=== PATIENT | female | born 1985 | race Caucasian/White ===

== ENCOUNTER 2021-03-10 11:40 | Day surgery (SDC) | payer OTHER ==
[2021-03-10 12:27] VITALS: BMI 31.0
[2021-03-10] MEDS ORDERED: hydrALAZINE 20 MG/ML VIAL SLOW IVP PRN (12:28)
[2021-03-10 12:44] LABS: Bilirubin Neg (Negative); Blood, Urine 10 (Negative); Clarity Clear (Clear); Glucose, Urine (Dipstick) Normal (Negative); Ketone, Urine Negative (Negative); Leukocyte Negative (Negative); Nitrite Negative (Negative); Protein, Urine (Dipstick) 15 mg/dl (Neg-Trace); Urobilinogen Normal mg/dL (Less than 2); pH, Urine 6.5 (5.0-9.0)
[2021-03-10 12:46] LABS: Urine Culture Reflex No No
[2021-03-10 12:58] LABS: Bacteria/HPF None Seen HPF (None Seen); RBC/HPF 0-3 HPF (0-3); Squamous Epithelial 0-3 HPF (0-3); WBC/HPF None Seen HPF (0-3)
== END 2021-03-10 13:08 | disposition home health service (06) ==
LOC: CSHLD/OP 11:40
PROVIDERS: ATTEND Obstetrics & Gynecology
DX: O99.891 Other specified diseases and conditions complicating pregnancy (principal); R31.9 Hematuria, unspecified; Z3A.39 39 weeks gestation of pregnancy; Z91.013 Allergy to seafood
CPT/HCPCS: 81001; 99283

== ENCOUNTER 2021-03-18 04:55 | Inpatient (IN) | payer OTHER ==
[2021-03-18] MEDS ORDERED: HYDROcodone/Acetaminophen 5/325 mg Tablet PO PRN ×3 (06:00→17:05)
[2021-03-18] MEDS ORDERED: Diphenoxylate HCl/Atropine Tablet PO PRN ×2 (06:00)
[2021-03-18] MEDS ORDERED: Methylergonovine 0.2 MG/ML VIAL IM PRN (06:00)
[2021-03-18] MEDS ORDERED: NS w/ Oxytocin 30 units 500 ML IVPB SCH ×2 (06:00→17:05)
[2021-03-18] MEDS ORDERED: Promethazine HCl 25 MG/ML VIAL IM PRN ×4 (06:00→17:05)
[2021-03-18] MEDS ORDERED: Ibuprofen 800 MG TAB PO PRN (06:00)
[2021-03-18] MEDS ORDERED: Ondansetron PF 4 MG/2 ML Vial IVP PRN ×4 (06:00→17:05)
[2021-03-18] MEDS ORDERED: Misoprostol 200 MCG TAB RC PRN (06:00)
[2021-03-18] MEDS ORDERED: NS w/ Oxytocin 30 units 500 ML IV SCH ×2 (06:00)
[2021-03-18] MEDS ORDERED: Butorphanol Tartrate 1 MG/ML VIAL SLOW IVP PRN (06:00)
[2021-03-18] MEDS ORDERED: Carboprost 250 MCG/ML AMP IM PRN (06:00)
[2021-03-18] MEDS ORDERED: Lidocaine 1% (PF) 30 ML VIAL SC PRN (06:00)
[2021-03-18] MEDS ORDERED: hydrALAZINE 20 MG/ML VIAL SLOW IVP PRN ×3 (06:00→17:05)
[2021-03-18 06:03] LABS: Hemoglobin 11.3 g/dL (12.0-15.5); Mean Corpuscular HGB CONC 33.7 g/dL (32.0-36.0); Mean Corpuscular Hemoglobin 32.4 pg (27.0-33.0); Mean Platelet Volume 10.6 fl (7.4-10.4); Platelet Count 321 10x3/uL (150-450); RBC Distribution Width 12.7 % (11.5-14.5); Red Blood Cell (RBC) Count 3.49 10x6/uL (3.90-5.03); White Blood Cell (WBC) Count 14.3 10x3/uL (3.5-10.5)
[2021-03-18] MEDS: Lactated Ringer's 1,000 ML IV SCH ×3 (06:10→14:27)
[2021-03-18 06:40] LABS: Hep B Surf Ag Non-Reactive S/CO (NonReactive)
[2021-03-18] MEDS ORDERED: Fentanyl 4 mcg/Bup 0.1% Cadd 100 ML ONE ×2 (06:50→14:20)
[2021-03-18 06:52] LABS: HBSAg Index 0.17 S/CO (0-0.99)
[2021-03-18] MEDS: Fentanyl 4 mcg/Bupivacaine 0.1% Cassette 100 ML EPIDURAL SCH ×2 (07:20→14:22)
[2021-03-18 09:18] VITALS: BMI 31.7
[2021-03-18 09:19] LABS: Syphilis Antibody Nonreactive (Nonreactive); Syphilis Antibody Index 0.03 S/CO (<1.00 Non-Reactive)
[2021-03-18] MEDS ORDERED: ePHEDrine 50 MG/ML VIAL SLOW IVP PRN ×2 (10:21→11:26)
[2021-03-18] MEDS ORDERED: diphenhydrAMINE 50 MG/ML VIAL IVP PRN ×2 (10:21→11:26)
[2021-03-18] MEDS ORDERED: Lactated Ringer's 500 ML IV PRN ×2 (10:21→11:26)
[2021-03-18] MEDS ORDERED: Acetaminophen 325 MG TAB PO PRN ×2 (10:21→11:26)
[2021-03-18] MEDS ORDERED: Naloxone HCl 0.4 mg/ml Vial IVP PRN ×4 (10:21→11:26)
[2021-03-18] MEDS ORDERED: Eucerin (Mineral Oil/Petrolatum,White) 30 gm Jar TOP PRN ×2 (10:21→11:26)
[2021-03-18] MEDS ORDERED: Communication Order-Pharmacy FS SCH ×2 (10:30→11:30)
[2021-03-18] MEDS ORDERED: Bisacodyl 10 MG SUPP PR PRN ×2 (17:05)
[2021-03-18] MEDS ORDERED: NS / Oxytocin 40 units/1000ml 1,000 ML IV SCH ×2 (17:05)
[2021-03-18] MEDS ORDERED: Benzocaine-Menthol 82.5 ML CAN TOP PRN (17:05)
[2021-03-18] MEDS ORDERED: Milk Of Magnesia 30 ML UDCUP PO PRN ×2 (17:05)
[2021-03-18] MEDS ORDERED: Adacel (T-DAP) 0.5 ML SYRINGE IM ONE (17:05)
[2021-03-18] MEDS ORDERED: Lanolin Ointment 7 GM TUBE TOP PRN (17:05)
[2021-03-18] MEDS ORDERED: Misoprostol 100 MCG TAB PO PRN (17:05)
[2021-03-18] MEDS ORDERED: Ferrous Sulfate 325 MG TAB PO SCH (17:05)
[2021-03-18] MEDS: Ferrous Sulfate 325 MG TAB PO SCH (18:36)
[2021-03-18] MEDS ORDERED: Docusate Calcium (SURFAK) 240 MG CAP PO SCH (21:00)
[2021-03-18 21:13] LABS: SARS-CoV-2 PCR by NAA Indeterminate (NotDetected)
[2021-03-18 21:26] LABS: Hemoglobin 9.3 g/dL (12.0-15.5); Mean Corpuscular HGB CONC 33.9 g/dL (32.0-36.0); Mean Corpuscular Hemoglobin 31.7 pg (27.0-33.0); Mean Corpuscular Volume 93.5 fl (81.6-98.3); Mean Platelet Volume 10.5 fl (7.4-10.4); Platelet Count 268 10x3/uL (150-450); RBC Distribution Width 12.8 % (11.5-14.5); Red Blood Cell (RBC) Count 2.93 10x6/uL (3.90-5.03); White Blood Cell (WBC) Count 22.2 10x3/uL (3.5-10.5)
[2021-03-18] MEDS: Misoprostol 100 MCG TAB PO SCH (21:35)
[2021-03-18] MEDS: Docusate Calcium (SURFAK) 240 MG CAP PO SCH (21:35)
[2021-03-18] MEDS: Ibuprofen 800 MG TAB PO SCH (21:36)
[2021-03-18] MEDS ORDERED: Acetaminophen 500 MG TAB PO PRN (22:17)
[2021-03-19] MEDS: Misoprostol 100 MCG TAB PO SCH ×3 (05:12→16:11)
[2021-03-19] MEDS: Ibuprofen 800 MG TAB PO SCH ×3 (05:12→22:24)
[2021-03-19 06:25] LABS: Hemoglobin 8.7 g/dL (12.0-15.5)
[2021-03-19] MEDS: Docusate Calcium (SURFAK) 240 MG CAP PO SCH ×2 (08:14→22:24)
[2021-03-19] MEDS: Ferrous Sulfate 325 MG TAB PO SCH ×2 (08:14→18:22)
[2021-03-20] MEDS: Ibuprofen 800 MG TAB PO SCH ×2 (05:22→14:51)
[2021-03-20] MEDS: Ferrous Sulfate 325 MG TAB PO SCH (08:05)
[2021-03-20] MEDS: Docusate Calcium (SURFAK) 240 MG CAP PO SCH (08:05)
[2021-03-20 08:14] VITALS: BP 111/67; TEMP 98
== END 2021-03-20 18:15 | disposition home or self-care (01) | DRG 806 ==
LOC: CSHLD/OP 04:55 → CSHLD 06:21 → CSHPP 17:15
PROVIDERS: ADMIT Obstetrics & Gynecology; ATTEND Obstetrics & Gynecology
PROC: 10E0XZZ Delivery of Products of Conception, External Approach (ICD-10-PCS; principal; 2021-03-18)
PROC: 0HQ9XZZ Repair Perineum Skin, External Approach (ICD-10-PCS; 2021-03-18)
DX: O48.0 Post-term pregnancy (principal); O72.1 Other immediate postpartum hemorrhage; Z37.0 Single live birth; Z3A.40 40 weeks gestation of pregnancy; Z20.822 Contact with and (suspected) exposure to COVID-19; O70.0 First degree perineal laceration during delivery; Z86.16 Personal history of COVID-19
CPT/HCPCS: 36415; 51702; 85014; 85018; 85027; 86780; 86850; 86900; 86901; 87340; 87635; 99285; J2590; U0003; U0005